=== PATIENT | female | born 1960 | race Caucasian/White ===

== ENCOUNTER 2021-11-27 19:54 | Emergency (ER) | payer OTHER ==
[2021-11-27] MEDS ORDERED: FAMOTIDINE 20 MG/2 ML VIAL IV ONE (20:47)
[2021-11-27] MEDS ORDERED: NA CHLORIDE 0.9% 1,000 ML ONE (20:47)
[2021-11-27] MEDS ORDERED: ONDANSETRON 4 MG/2 ML VIAL ONE (20:47)
[2021-11-27] MEDS ORDERED: KETOROLAC 30 MG/ML INJ ONE (20:47)
[2021-11-27 21:00] LABS: Absolute Lymphocytes (CBC) 0.8 K/uL (0.7-4.9); Hematocrit 41.6 % (36.0-45.0); Lymphocytes % 5.3 % (15.3-44.8); MCV 95.4 fL (80-100); MPV 7.6 fL (7.6-11.3); RBC Red Blood Cell Count 4.36 M/uL (3.86-4.86)
[2021-11-27 21:16] LABS: Albumin 4.3 g/dL (3.4-5.0); Bilirubin Total 0.2 mg/dL (0.2-1.0); Potassium 3.8 mmol/L (3.5-5.1); Protein, Total 7.6 g/dL (6.4-8.2)
[2021-11-27] MEDS ORDERED: PROMETHAZINE INJ 25 MG/ML AMP ONE (21:40)
[2021-11-27] MEDS ORDERED: MORPHINE 2 MG/ML SYR ONE (21:41)
--- NOTE | 2021-11-27 22:29 | RAD REPORT ---
EXAM DESCRIPTION: CT - Abdomen Pelvis W Contrast - 11/27/2021 10:06 pm CLINICAL HISTORY: abd pain COMPARISON: <Comparisons> TECHNIQUE: Biphasic, helical CT imaging of the abdomen and pelvis was performed following 100 ml non -ionic IV contrast. No oral contrast administered. All CT scans are performed using dose optimization technique as appropriate and may include automated exposure control or mA/KV adjustment according to patient size. FINDINGS: No suspicious findings in the lung bases. The liver, spleen, and pancreas show no suspicious findings. Gallbladder and biliary tree are also wi thout suspicious finding. Moderate dilatation of the left-side pelvis, calices and proximal ureter noted secondary to an 8 x 5 mm stone in the mid left ureter. This is significant obstruction. There is extravasation of urine fro m the calices into the surrounding perinephric fatty tissues. No other obstructing or nonobstructing calculi seen on the left. No right-sided hydronephrosis. Parenchymal enhancement is similar to the ob structed right kidney. No pyelonephritis or acute parenchymal process. No bladder abnormalities. No a drenal abnormalities. No uterine or ovarian abnormality. No dilated bowel loops or bowel wall thickening. No free air or pneumatosis. No hernia, mass or bul ky lymphadenopathy. No suspicious bony findings. IMPRESSION: Moderate left-sided hydronephrosis secondary to an 8 x 5 mm obstructing mid left ureter calculus. Stone causes significant obstruction. There is extravasation of urine from the calices into the surro unding perinephric fatty tissues.
[2021-11-27] MEDS ORDERED: CEFTRIAXONE 1000 MG/VIAL ONE (23:09)
[2021-11-28 00:17] LABS: Urine Blood 2+ (Negative); Urine Glucose Negative (Negative); Urine Protein Negative (Negative)
--- NOTE | 2021-11-28 00:20 | EDPHYS ---
Physician Documentation [facility] Name: Ervin Gonzalez Age: 61 yrs Sex: Female : 1960 Arrival Date: 11/27/2021 Time: 19:57 Bed 27 Private MD: ED Physician Kapil Irizarry HPI: 11/27 22:35 This 61 yrs old Female presents to ER via Wheelchair with complaints of kb Nausea/Vomiting, Abdominal Cramping, Abdominal Pain. 22:35 The patient presents to the emergency department with nausea, vomiting, diarrhea, kb abdominal pain. The patient has not experienced similar symptoms in the past. The patient has not recently seen a physician. Patient reports nausea and vomiting started at 5:30 PM today. Reports onset was sudden. Denies sick contacts. Believes she has food poisoning from eating spaghetti that was left out. Also reports pain to left lower quadrant.. 22:53 Onset: The symptoms/episode began/occurred at 17:30. Possible causes: bad food kb exposure. The symptoms are aggravated by nothing. The symptoms are alleviated by nothing. Associated signs and symptoms: Pertinent positives: abdominal pain, nausea, vomiting. Severity of symptoms: At their worst the symptoms were moderate in the emergency department the symptoms are unchanged. Historical: - Allergies: 20:23 Sulfa (Sulfonamide Antibiotics); vc1 20:23 PENICILLINS; vc1 - Home Meds: 20:23 None [Active]; vc1 - PMHx: 20:23 None; vc1 - PSHx: 20:23 None; vc1 - Immunization history:: Adult Immunizations up to date, Client reports receiving the 2nd dose of the Covid vaccine. - Social history:: Smoking status: Patient denies any tobacco usage or history of. ROS: 22:34 Constitutional: Negative for fever, chills, and weight loss. kb 22:34 Abdomen/GI: Positive for abdominal pain, nausea, vomiting, and diarrhea, Negative for 22:34 All other systems are negative. Exam: 22:35 Constitutional: This is a well developed, well nourished patient who is awake, alert, kb and in no acute distress. Head/Face: Normocephalic, atraumatic. ENT: Moist Mucous membranes Cardiovascular: Regular rate and rhythm with a normal S1 and S2. No gallops, murmurs, or rubs. No pulse deficits. Respiratory: Respirations even and unlabored. No increased work of breathing. Talking in full sentences Skin: Warm, dry with normal turgor. Normal color. MS/ Extremity: Pulses equal, no cyanosis. Neurovascular intact. Full, normal range of motion. Neuro: Awake and alert, GCS 15, oriented to person, place, time, and situation. Moves all extremities. Normal gait. Psych: Awake, alert, with orientation to person, place and time. Behavior, mood, and affect are within normal limits. 22:35 Abdomen/GI: Inspection: abdomen appears normal, Bowel sounds: normal, in all quadrants, Palpation: soft, in all quadrants, mild abdominal tenderness, in the right upper quadrant, left upper quadrant and right lower quadrant, moderate abdominal tenderness, in the left lower quadrant. Vital Signs: 20:21 Weight 58.97 kg; Height 5 ft. 7 in. (170.18 cm); Pain 6/10; vc1 20:28 Pulse 66; Resp 18; Temp 98.0(O); Pulse Ox 100% ; vc1 20:31 BP 116 / 69; vc1 22:15 BP 112 / 70; Pulse 68; Resp 16; Pulse Ox 99% on R/A; Pain 8/10; hb 20:21 Body Mass Index 20.36 (58.97 kg, 170.18 cm) vc1 MDM: 20:30 Patient medically screened. 22:35 Data reviewed: vital signs, nurses notes. Data interpreted: Pulse oximetry: on room air kb is 100 %. Interpretation: normal. 22:53 Counseling: I had a detailed discussion with the patient and/or guardian regarding: the kb historical points, exam findings, and any diagnostic results supporting the discharge/admit diagnosis, lab results, radiology results, the need to transfer to another facility, [facility] does not immediately have the required specialist. 23:45 ED course: Transfer to [facility] was initiated. I spoke to urologist Dr. joseph Hernandez , whose said patient did not need to be emergently transferred tonight and he could see her in his office tomorrow. Recommended patient be sent home with Cipro, Flomax and pain medication. . 23:50 ED course: Transfer initiated to [facility] per pt request. joseph 11/28 00:22 ED course: Patient reports she is feeling better pain is under control. Patient will kb call urologist in the morning for follow-up appointment. Does not want to wait any longer To try to find in their hospital be transferred to. Patient given contact information for Dr. Aguiar and Dr. Hernandez. Patient given strict return precautions. Verbal understanding of all instructions received.. 11/27 20:30 Order name: CBC with Diff; Complete Time: 21:24 kb 11/27 20:30 Order name: CMP; Complete Time: 21:17 kb 11/27 20:30 Order name: Lipase; Complete Time: 21:17 kb 11/27 20:30 Order name: COVID-19 SARS RT PCR (Document "Date of Onset" if Symptomatic); Complete kb Time: 21:48 11/27 22:50 Order name: Urine Microscopic Only kb 11/28 00:17 Order name: Urine Dipstick-Ancillary; Complete Time: 00:23 EDHI 11/27 20:30 Order name: CT Abd/Pelvis - IV Contrast Only; Complete Time: 22:30 kb 11/28 00:47 Order name: Urine Culture EDHI 11/27 20:30 Order name: IV Saline Lock; Complete Time: 20:55 kb 11/27 20:30 Order name: Labs collected and sent; Complete Time: 20:55 kb 11/27 20:30 Order name: Urine Dipstick-Ancillary (obtain specimen); Complete Time: 00:24 kb Administered Medications: 11/27 20:55 Drug: NS 0.9% 1000 ml Route: IV; Rate: 1 bolus; Site: left antecubital; hb 22:00 Follow up: Response: No adverse reaction; IV Status: Completed infusion; IV Intake: hb 1000ml 20:55 Drug: Pepcid (famotidine) 20 mg Route: IVP; Site: left antecubital; hb 21:59 Follow up: Response: No adverse reaction hb 20:55 Drug: Zofran (Ondansetron) 4 mg Route: IVP; Site: left antecubital; hb 21:59 Follow up: Response: No adverse reaction hb 20:55 Drug: Ketorolac 15 mg Route: IVP; Site: left antecubital; hb 21:59 Follow up: Response: No adverse reaction hb 21:37 Drug: morphine 2 mg Route: IVP; Infused Over: 4 mins; Site: left antecubital; hb 22:22 Follow up: Response: No adverse reaction hb 21:37 Drug: Phenergan (promethazine) 12.5 mg Route: IVP; Site: left antecubital; hb 22:22 Follow up: Response: No adverse reaction hb 23:14 Drug: Rocephin (cefTRIAXone) 1 grams Route: IV; Rate: calculated rate; Site: left hb antecubital; 11/28 00:40 Follow up: IV Status: Completed infusion tw5 00:39 Drug: [place] (HYDROcodone-acetaminophen) (7.5 mg-325 mg) 1 tabs Route: PO; tw5 00:40 Follow up: Response: No adverse reaction; Medication administered at discharge.; RASS: tw5 Alert and Calm (0) Disposition: 05:07 Co-signature as Attending Physician, Kapil Irizarry MD. rn Disposition Summary: 11/28/21 00:19 Discharge Ordered Location: Home kb Condition: Stable kb Diagnosis - Unspecified hydronephrosis - with obstruction kb - Calculus of kidney with calculus of ureter - 8x5mm left ureter kb Followup: kb - With: Emergency Department - When: As needed - Reason: Worsening of condition Followup: kb - With: Private Physician - When: 2 - 3 days - Reason: Recheck today's complaints, Continuance of care, Re-evaluation by your physician Followup: kb - With: Andrea Aguiar MD - When: Tomorrow - Reason: Recheck today's complaints Discharge Instructions: - Discharge Summary Sheet kb - Kidney Stones, [id number] kb Forms: - Medication Reconciliation Form kb - Thank You Letter kb - Antibiotic Education kb - Prescription Opioid Use kb Prescriptions: - Flomax 0.4 mg Oral capsule - take 1 capsule by ORAL route once daily 1/2 hour following the same meal each kb day; 10 capsule; Refills: 0, Product Selection Permitted - Zofran 4 mg Oral Tablet - take 1 tablet by ORAL route every 6 hours As needed; 20 tablet; Refills: 0, Product Selection Permitted - Cipro 500 mg Oral Tablet - take 1 tablet by ORAL route every 12 hours for 7 days; 14 tablet; Refills: 0, Product Selection Permitted - Diclofenac Sodium 75 mg Oral tablet,delayed release (DR/EC) - take 1 tablet by ORAL route 2 times per day As needed; 30 tablet; Refills: 0, kb Product Selection Permitted - Tramadol 50 mg Oral Tablet - take 1 tablet by ORAL route every 8 hours as needed; 12 tablet; Refills: 0, kb Product Selection Permitted Signatures: Dispatcher [employer] EDMS Fatoumata Wooten, LIMNOLOGIST-C LIMNOLOGIST-Kapil Horvath MD MD rn Baxter, Heather, RN RN hb Wood, Tiffany tw5 Yasmin Wallis RN RN vc1 Corrections: (The following items were deleted from the chart) 00: 00:22 ED course: Patient reports she is feeling better pain is under control. Patient kb will call urologist in the morning for follow-up appointment. Does not want to wait any longer To try to find in their hospital be transferred to.. kb : 00:22 ED course: Patient reports she is feeling better pain is under control. Patient kb will call urologist in the morning for follow-up appointment. Does not want to wait any longer To try to find in their hospital be transferred to. Patient given contact information for Dr. Aguiar and Dr. Hernandez. kb 00:32 08 23:50 ED course: Transfer initiated to [facility]. kb kb
--- NOTE | 2021-11-28 00:20 | ER ---
Nurse's Notes [facility] Name: Ervin Gonzalez Age: 61 yrs Sex: Female : 1960 Arrival Date: 11/27/2021 Time: 19:57 Bed 27 Private MD: Diagnosis: Unspecified hydronephrosis-with obstruction;Calculus of kidney with calculus of ureter-8x5mm left ureter Presentation: 11/27 20:21 Chief complaint: Patient states: "She started feeling nauseous and throwing up with vc1 severe pain on the left side. I haven't peed since this morning.". Coronavirus screen: Vaccine status: Patient reports receiving the 2nd dose of the covid vaccine. Plus booster, Moderna At this time, the client does not indicate any symptoms associated with coronavirus-19. Ebola Screen: No symptoms or risks identified at this time. Risk Assessment: Do you want to hurt yourself or someone else? Patient reports no desire to harm self or others. Onset of symptoms was November 27, 2021 at 17:00. 20:21 Method Of Arrival: Wheelchair vc1 20:21 Acuity: EKATERINA 3 vc1 20:31 Initial Sepsis Screen: Does the patient meet any 2 criteria? No. Patient's initial vc1 sepsis screen is negative. Does the patient have a suspected source of infection? Yes:. Triage Assessment: 20:24 General: Appears uncomfortable, ill, Behavior is cooperative, appropriate for age. vc1 Pain: Complains of pain in left lower quadrant Pain radiates to left mid back Pain currently is 6 out of 10 on a pain scale. EENT: No deficits noted. Neuro: Level of Consciousness is awake, alert, obeys commands, Oriented to person, place, time, situation, Appropriate for age. Cardiovascular: Capillary refill < 3 seconds Patient's skin is warm and dry. Respiratory: Airway is patent Respiratory effort is even, unlabored, Respiratory pattern is regular, symmetrical. GI: Reports upper abdominal pain, cramping, nausea, vomiting. Historical: - Allergies: 20:23 Sulfa (Sulfonamide Antibiotics); vc1 20:23 PENICILLINS; vc1 - Home Meds: 20:23 None [Active]; vc1 - PMHx: 20:23 None; vc1 - PSHx: 20:23 None; vc1 - Immunization history:: Adult Immunizations up to date, Client reports receiving the 2nd dose of the Covid vaccine. - Social history:: Smoking status: Patient denies any tobacco usage or history of. Screenin:24 Abuse screen: Denies threats or abuse. Nutritional screening: No deficits noted. vc1 Tuberculosis screening: No symptoms or risk factors identified. Fall Risk None identified. Assessment: 20:55 General: Appears in no apparent distress. uncomfortable, Behavior is calm, cooperative. hb Pain: Pain currently is 5 out of 10 on a pain scale. Neuro: Level of Consciousness is awake, alert, obeys commands, Oriented to person, place, time, situation. Cardiovascular: Patient's skin is warm and dry. Respiratory: Respiratory effort is even, unlabored, Respiratory pattern is regular, symmetrical. GI: Reports lower abdominal pain, diarrhea, nausea, vomiting. : No signs and/or symptoms were reported regarding the genitourinary system. EENT: No signs and/or symptoms were reported regarding the EENT system. Derm: Skin is pink, warm \\T\\ dry. Musculoskeletal: No signs and/or symptoms reported regarding the musculoskeletal system. 22:00 Reassessment: Patient appears in no apparent distress at this time. Patient and/or hb family updated on plan of care and expected duration. Pain level reassessed. Patient is alert, oriented x 3, equal unlabored respirations, skin warm/dry/pink. 23:00 Reassessment: Patient appears in no apparent distress at this time. Patient and/or hb family updated on plan of care and expected duration. Pain level reassessed. Patient is alert, oriented x 3, equal unlabored respirations, skin warm/dry/pink. 23:56 Reassessment: Patient appears in no apparent distress at this time. Patient and/or hb family updated on plan of care and expected duration. Pain level reassessed. Patient is alert, oriented x 3, equal unlabored respirations, skin warm/dry/pink. Vital Signs: 20:21 Weight 58.97 kg; Height 5 ft. 7 in. (170.18 cm); Pain 6/10; vc1 20:28 Pulse 66; Resp 18; Temp 98.0(O); Pulse Ox 100% ; vc1 20:31 BP 116 / 69; vc1 22:15 BP 112 / 70; Pulse 68; Resp 16; Pulse Ox 99% on R/A; Pain 8/10; hb 20:21 Body Mass Index 20.36 (58.97 kg, 170.18 cm) vc1 ED Course: 19:57 Patient arrived in ED. [email or web address] 20:11 Fatoumata Wooten FNP-C [facility] kb 20:11 Kapil Irizarry MD is Attending Physician. kb 20:23 Triage completed. vc1 20:23 Arm band placed on right wrist. vc1 20:37 Mayte Moser, RN is Primary Nurse. hb 20:46 Inserted saline lock: 20 gauge in left antecubital area, using aseptic technique. Blood hb collected. 20:56 Patient has correct armband on for positive identification. hb 22:07 CT Abd/Pelvis - IV Contrast Only In Process Unspecified. EDMS 11/28 00:09 Primary Nurse role handed off by Mayte Moser, RN tw5 00:09 Sofia Katz is Primary Nurse. tw5 00:20 Andrea Aguiar MD is Referral Physician. kb 00:24 Urine Microscopic Only Sent. tw5 00:48 No provider procedures requiring assistance completed. IV discontinued, intact, tw5 bleeding controlled, No redness/swelling at site. Pressure dressing applied. Administered Medications: 11/27 20:55 Drug: NS 0.9% 1000 ml Route: IV; Rate: 1 bolus; Site: left antecubital; hb 22:00 Follow up: Response: No adverse reaction; IV Status: Completed infusion; IV Intake: hb 1000ml 20:55 Drug: Pepcid (famotidine) 20 mg Route: IVP; Site: left antecubital; hb 21:59 Follow up: Response: No adverse reaction hb 20:55 Drug: Zofran (Ondansetron) 4 mg Route: IVP; Site: left antecubital; hb 21:59 Follow up: Response: No adverse reaction hb 20:55 Drug: Ketorolac 15 mg Route: IVP; Site: left antecubital; hb 21:59 Follow up: Response: No adverse reaction hb 21:37 Drug: morphine 2 mg Route: IVP; Infused Over: 4 mins; Site: left antecubital; hb 22:22 Follow up: Response: No adverse reaction hb 21:37 Drug: Phenergan (promethazine) 12.5 mg Route: IVP; Site: left antecubital; hb 22:22 Follow up: Response: No adverse reaction hb 23:14 Drug: Rocephin (cefTRIAXone) 1 grams Route: IV; Rate: calculated rate; Site: left hb antecubital; 11/28 00:40 Follow up: IV Status: Completed infusion tw5 00:39 Drug: [place] (HYDROcodone-acetaminophen) (7.5 mg-325 mg) 1 tabs Route: PO; tw5 00:40 Follow up: Response: No adverse reaction; Medication administered at discharge.; RASS: tw5 Alert and Calm (0) Medication: 11/27 20:31 VIS not applicable for this client. vc1 Intake: 22:00 IV: 1000ml; Total: 1000ml. hb Outcome: 11/28 00:19 Discharge ordered by . kb 00:48 Discharged to home ambulatory. tw 00:48 Condition: stable 00:48 Discharge instructions given to patient, Instructed on discharge instructions, follow up and referral plans. Demonstrated understanding of instructions, follow-up care, medications, Prescriptions given X 4. 01:00 Patient left the ED. Signatures: Dispatcher [employer] EDMS Fatoumata Wooten, GREENSKEEPER LABORER-C GREENSKEEPER LABORER-CkMayte Lombardi RN RN hb Wood, Tiffany tw5 Vijaya Cameronj6 Yasmin Wallis RN RN vc1
[2021-11-28] MEDS ORDERED: HYDROCODONE/APAP 7.5/325 MG TAB ONE (00:33)
[2021-11-28 00:44] LABS: Urine Bacteria 20-50 /HPF (<20)
[2021-11-28 03:18] VITALS: TEMP 98
[2021-11-28 03:22] VITALS: BP 112/70; O2SAT 99
== END 2021-11-28 01:00 | disposition home or self-care (01) ==
LOC: ER 19:54
DX: N13.2 Hydronephrosis with renal and ureteral calculous obstruction (principal); Z88.0 Allergy status to penicillin; Z88.2 Allergy status to sulfonamides; Z20.822 Contact with and (suspected) exposure to COVID-19
CPT/HCPCS: 96365; 96361; 87088; 85025; 87086; 36415; 83690; 80053; 74177; 96375; 99284; U0003; Q9967; J2550; J2270; J7030; J2405; 81003; 81015